=== PATIENT | female | born 1980 | race Caucasian/White ===

== ENCOUNTER 2017-11-16 18:28 | Inpatient (IN) | payer OTHER ==
[2017-11-16] MEDS: ONDANSETRON PF 4 MG/2 ML VIAL. IV ×2 (19:58→22:56)
[2017-11-16] MEDS: IV NORMAL SALINE 1000ML BAG 1,000 ML IV ×2 (19:59→22:59)
[2017-11-16] MEDS: fentaNYL PF VIAL 100 MCG/2 ML VIAL IV ×5 (19:59→23:46)
[2017-11-16 20:29] LABS: URINE HCG POC HCG NEGATIVE (Negative)
[2017-11-16] MEDS: PIPERACILLIN/TAZOBACTAM 3.375 GM in IV NORMAL SALINE 50ML 50 ML IV (21:21)
[2017-11-16 21:23] LABS: ANION GAP 12 (6-14); BLOOD UREA NITROGEN 9 mg/dL (7-20); BUN/CREATININE RATIO 23 (6-20); CALCIUM 8.6 mg/dL (8.5-10.1); CARBON DIOXIDE 20 mmol/L (21-32); CHLORIDE 105 mmol/L (98-107); CREATININE 0.4 mg/dL (0.6-1.0); GFR 177.7; GLUCOSE 105 mg/dL (70-99); POTASSIUM 3.5 mmol/L (3.5-5.1); SODIUM 137 mmol/L (136-145)
[2017-11-16 21:30] LABS: ALBUMIN 2.8 g/dL (3.4-5.0); ALBUMIN/GLOBULIN RATIO 0.7 (1.0-1.7); ALK PHOS 74 U/L (46-116); ALT (SGPT) 15 U/L (14-59); AST (SGOT) 14 U/L (15-37); LIPASE 72 U/L (73-393); TOTAL BILIRUBIN 0.5 mg/dL (0.2-1.0); TOTAL PROTEIN 6.7 g/dL (6.4-8.2)
[2017-11-16 22:04] LABS: ADD MAN DIFF? NO
[2017-11-16 22:13] LABS: BASO # 0.1 x10^3/uL (0.0-0.2); BASO % 1 % (0-3); EOS # 0.2 x10^3/uL (0.0-0.7); EOS % 1 % (0-3); HEMATOCRIT 40.8 % (36.0-47.0); HEMOGLOBIN 13.7 g/dL (12.0-15.5); LYMPH # 1.9 x10^3/uL (1.0-4.8); LYMPH % 12 % (24-48); MEAN CORPUSCULAR HEMOGLOBIN 30 pg (25-35); MEAN CORPUSCULAR HGB CONC 34 g/dL (31-37); MEAN CORPUSCULAR VOLUME 90 fL (79-100); MONO # 1.5 x10^3/uL (0.0-1.1); MONO % 10 % (0-9); NEUT % 77 % (31-73); PLATELET COUNT 324 x10^3/uL (140-400); RED BLOOD COUNT 4.54 x10^6/uL (3.50-5.40); RED CELL DISTRIBUTION WIDTH 13.4 % (11.5-14.5); WHITE BLOOD COUNT 15.6 x10^3/uL (4.0-11.0)
[2017-11-16] MEDS ORDERED: CYCLOBENZAPRINE 10 MG TABLET. PO (23:30)
[2017-11-16] MEDS: IBUPROFEN 800 MG TABLET. PO (23:43)
[2017-11-16] MEDS: clonazePAM 1 MG TABLET PO (23:43)
[2017-11-16] MEDS: CYCLOBENZAPRINE 10 MG TABLET. PO (23:43)
[2017-11-17] MEDS: DICYCLOMINE HCL 10 MG CAPSULE PO ×2 (00:10→20:03)
[2017-11-17] MEDS: fentaNYL PF VIAL 100 MCG/2 ML VIAL IV ×6 (00:52→22:35)
[2017-11-17] MEDS: IV NORMAL SALINE 1000ML BAG 1,000 ML IV ×3 (06:55→13:03)
[2017-11-17] MEDS: PIPERACILLIN/TAZOBACTAM 3.375 GM in IV NORMAL SALINE 50ML 50 ML IV ×3 (08:30→17:48)
[2017-11-17] MEDS ORDERED: ONDANSETRON PF 4 MG/2 ML VIAL. (09:52)
[2017-11-17] MEDS ORDERED: PROPOFOL 20 ML IV (09:52)
[2017-11-17] MEDS ORDERED: DEXAMETHASONE SOD PHOS 20 MG/5 ML VIAL. (09:52)
[2017-11-17] MEDS ORDERED: LIDOCAINE 2% PF Vial for OR 5 ML VIAL. (09:52)
[2017-11-17] MEDS ORDERED: ROCURONIUM 50 MG/5 ML VIAL. ×2 (09:53→11:42)
[2017-11-17] MEDS ORDERED: SUCCINYLCHOLINE 200 MG/10 ML VIAL. (09:53)
[2017-11-17] MEDS ORDERED: MIDAZOLAM HCL/PF 2 MG/2 ML VIAL. (09:53)
[2017-11-17] MEDS: IV RINGERS,LACTATED 1000ML 1,000 ML IV (09:53)
[2017-11-17] MEDS ORDERED: fentaNYL PF VIAL 100 MCG/2 ML VIAL (09:53)
[2017-11-17] MEDS ORDERED: ONDANSETRON PF 4 MG/2 ML VIAL. IV (10:00)
[2017-11-17] MEDS ORDERED: MORPHINE SULFATE 2 MG/ML DISP.SYRIN. IV (10:00)
[2017-11-17] MEDS ORDERED: fentaNYL PF VIAL 100 MCG/2 ML VIAL IV (10:00)
[2017-11-17] MEDS ORDERED: LIDOCAINE 1% PF 2 ML VIAL. ID (10:00)
[2017-11-17] MEDS ORDERED: PROCHLORPERAZINE 10 MG/2 ML VIAL. IV (10:00)
[2017-11-17] MEDS: BUPIVACAINE-EPI 0.25%-1:200000 50 ML VIAL. (10:57)
[2017-11-17] MEDS: SURGICEL HEMOSTAT 4X8 EACH. (10:57)
[2017-11-17] MEDS ORDERED: FAMOTIDINE 20 MG/2 ML VIAL (11:09)
[2017-11-17] MEDS ORDERED: PHENYLEPHRINE in 0.9% NACL PF 1 MG/10 ML SYRINGE. IV (11:10)
[2017-11-17] MEDS ORDERED: GLYCOPYRROLATE 1 MG/5 ML VIAL. (12:09)
[2017-11-17] MEDS ORDERED: NEOSTIGMINE METHYLSULFATE 5 MG/5 ML SYRINGE. (12:09)
[2017-11-17] MEDS ORDERED: SEVOFLURANE 61 TO 120 MINUTES. IH (13:56)
[2017-11-17] MEDS: oxyCODONE/APAP 5/325 1 TAB TABLET PO ×2 (14:28→20:03)
[2017-11-17] MEDS: ALBUTEROL SULFATE 2.5 MG/3 ML NEBU. NEB (15:25)
[2017-11-17 15:38] LABS: BASE EXCESS ABG -3 mmol/L (-3-3); HCO3 ABG 23 mmol/L (21-28); PCO2 ABG 46 mmHg (35-46); PH ABG 7.32 (7.35-7.45); PO2 ABG 74 mmHg (75-108); SAT O2 ABG 94 % (92-99)
[2017-11-17] MEDS ORDERED: MORPHINE SULFATE 4 MG/ML DISP.SYRIN. IV (18:15)
[2017-11-17] MEDS: LACTOBACILLUS RHAMNOSUS GG 1 CAPSULE. PO (20:04)
[2017-11-17] MEDS: IBUPROFEN 800 MG TABLET. PO (20:04)
[2017-11-17] MEDS: clonazePAM 1 MG TABLET PO (20:09)
[2017-11-17] MEDS: CYCLOBENZAPRINE 10 MG TABLET. PO (22:35)
[2017-11-18] MEDS: PIPERACILLIN/TAZOBACTAM 3.375 GM in IV NORMAL SALINE 50ML 50 ML IV ×5 (00:30→23:49)
[2017-11-18] MEDS: IV NORMAL SALINE 1000ML BAG 1,000 ML IV ×3 (00:31→16:30)
[2017-11-18] MEDS: NICOTINE 21MG PATCH. TD (00:31)
[2017-11-18] MEDS: clonazePAM 0.5 MG TABLET PO ×3 (04:14→21:40)
[2017-11-18] MEDS: oxyCODONE/APAP 5/325 1 TAB TABLET PO ×4 (04:15→21:39)
[2017-11-18] MEDS: LACTOBACILLUS RHAMNOSUS GG 1 CAPSULE. PO ×2 (08:27→21:40)
[2017-11-18] MEDS: ENOXAPARIN 40 MG/0.4 ML SYRINGE. SQ ×2 (08:27→21:39)
[2017-11-18] MEDS: ALBUTEROL SULFATE 2.5 MG/3 ML NEBU. NEB ×4 (08:30→20:41)
[2017-11-18] MEDS: fentaNYL PF VIAL 100 MCG/2 ML VIAL IV (14:26)
[2017-11-18] MEDS: IBUPROFEN 800 MG TABLET. PO ×2 (21:00→21:40)
[2017-11-18] MEDS: clonazePAM 1 MG TABLET PO (21:00)
[2017-11-19] MEDS: IV NORMAL SALINE 1000ML BAG 1,000 ML IV ×5 (00:30→20:16)
[2017-11-19] MEDS: ONDANSETRON PF 4 MG/2 ML VIAL. IV (03:09)
[2017-11-19] MEDS: MORPHINE SULFATE 4 MG/ML DISP.SYRIN. IV ×3 (03:28→17:26)
[2017-11-19] MEDS: PIPERACILLIN/TAZOBACTAM 3.375 GM in IV NORMAL SALINE 50ML 50 ML IV ×4 (06:16→23:22)
[2017-11-19] MEDS: ALBUTEROL SULFATE 2.5 MG/3 ML NEBU. NEB ×4 (07:52→20:00)
[2017-11-19] MEDS: LACTOBACILLUS RHAMNOSUS GG 1 CAPSULE. PO ×2 (09:00→21:29)
[2017-11-19] MEDS: ENOXAPARIN 40 MG/0.4 ML SYRINGE. SQ ×2 (09:36→21:30)
[2017-11-19] MEDS: SUMAtriptan SUCC 6 MG/0.5 ML VIAL. SQ (09:39)
[2017-11-19] MEDS: oxyCODONE/APAP 5/325 1 TAB TABLET PO (20:16)
[2017-11-19] MEDS: IBUPROFEN 800 MG TABLET. PO (21:29)
[2017-11-19] MEDS: CYCLOBENZAPRINE 10 MG TABLET. PO (21:29)
[2017-11-19] MEDS: clonazePAM 1 MG TABLET PO (21:30)
[2017-11-20] MEDS: IV NORMAL SALINE 1000ML BAG 1,000 ML IV ×3 (05:25→23:59)
[2017-11-20] MEDS: PIPERACILLIN/TAZOBACTAM 3.375 GM in IV NORMAL SALINE 50ML 50 ML IV ×4 (05:26→23:48)
[2017-11-20 05:56] LABS: ADD MAN DIFF? NO
[2017-11-20 06:07] LABS: BASO % 1 % (0-3); EOS # 0.2 x10^3/uL (0.0-0.7); EOS % 2 % (0-3); HEMATOCRIT 30.9 % (36.0-47.0); HEMOGLOBIN 10.5 g/dL (12.0-15.5); LYMPH # 1.4 x10^3/uL (1.0-4.8); LYMPH % 16 % (24-48); MEAN CORPUSCULAR HEMOGLOBIN 31 pg (25-35); MEAN CORPUSCULAR HGB CONC 34 g/dL (31-37); MEAN CORPUSCULAR VOLUME 91 fL (79-100); MONO % 12 % (0-9); NEUT % 69 % (31-73); PLATELET COUNT 249 x10^3/uL (140-400); RED CELL DISTRIBUTION WIDTH 13.2 % (11.5-14.5); WHITE BLOOD COUNT 8.7 x10^3/uL (4.0-11.0)
[2017-11-20] MEDS: ALBUTEROL SULFATE 2.5 MG/3 ML NEBU. NEB ×4 (07:28→19:21)
[2017-11-20] MEDS: oxyCODONE/APAP 5/325 1 TAB TABLET PO ×2 (09:57→17:02)
[2017-11-20] MEDS: ENOXAPARIN 40 MG/0.4 ML SYRINGE. SQ ×2 (09:57→20:49)
[2017-11-20] MEDS: LACTOBACILLUS RHAMNOSUS GG 1 CAPSULE. PO ×2 (09:58→20:48)
[2017-11-20] MEDS: BARIUM SULFATE 40% (APPLE) 148 GM PWD. PO (10:30)
[2017-11-20 10:40] LABS: BASE EXCESS ABG 2 mmol/L (-3-3); HCO3 ABG 26 mmol/L (21-28); PCO2 ABG 36 mmHg (35-46); PH ABG 7.47 (7.35-7.45); SAT O2 ABG 87 % (92-99)
[2017-11-20 10:42] LABS: FIO2 ABG 21; PO2 ABG 47 mmHg (75-108)
[2017-11-20] MEDS: clonazePAM 1 MG TABLET PO (20:48)
[2017-11-20] MEDS: IBUPROFEN 800 MG TABLET. PO (20:48)
[2017-11-20] MEDS: CYCLOBENZAPRINE 10 MG TABLET. PO (20:48)
[2017-11-21] MEDS: PIPERACILLIN/TAZOBACTAM 3.375 GM in IV NORMAL SALINE 50ML 50 ML IV ×3 (06:23→17:53)
[2017-11-21] MEDS: ALBUTEROL SULFATE 2.5 MG/3 ML NEBU. NEB ×4 (07:50→19:41)
[2017-11-21] MEDS: IV NORMAL SALINE 1000ML BAG 1,000 ML IV ×2 (08:49→17:53)
[2017-11-21] MEDS: ENOXAPARIN 40 MG/0.4 ML SYRINGE. SQ ×2 (09:00→22:15)
[2017-11-21] MEDS: LACTOBACILLUS RHAMNOSUS GG 1 CAPSULE. PO ×2 (09:46→21:00)
[2017-11-21] MEDS: CYCLOBENZAPRINE 10 MG TABLET. PO (21:00)
[2017-11-21] MEDS: IBUPROFEN 800 MG TABLET. PO (21:00)
[2017-11-21] MEDS: clonazePAM 1 MG TABLET PO (21:00)
[2017-11-21] MEDS: DICYCLOMINE HCL 10 MG CAPSULE PO (22:07)
[2017-11-22] MEDS: PIPERACILLIN/TAZOBACTAM 3.375 GM in IV NORMAL SALINE 50ML 50 ML IV ×3 (00:08→12:00)
[2017-11-22] MEDS: IV NORMAL SALINE 1000ML BAG 1,000 ML IV ×2 (00:16→06:12)
[2017-11-22] MEDS: ALBUTEROL SULFATE 2.5 MG/3 ML NEBU. NEB ×3 (08:32→16:20)
[2017-11-22] MEDS: LACTOBACILLUS RHAMNOSUS GG 1 CAPSULE. PO (10:22)
[2017-11-22] MEDS: ENOXAPARIN 40 MG/0.4 ML SYRINGE. SQ (10:23)
== END 2017-11-22 17:00 | disposition home health service (06) | DRG 417 ==
LOC: ER 18:28 → 4 NORTH 20:49
PROVIDERS: Family Medicine
PROC: 0FT44ZZ Resection of Gallbladder, Percutaneous Endoscopic Approach (ICD-10-PCS; principal; 2017-11-17 09:41)
DX: K80.00 Calculus of gallbladder with acute cholecystitis without obstruction (principal); J69.0 Pneumonitis due to inhalation of food and vomit; J96.01 Acute respiratory failure with hypoxia; J44.1 Chronic obstructive pulmonary disease with (acute) exacerbation; K56.7 Ileus, unspecified; R13.10 Dysphagia, unspecified; E66.9 Obesity, unspecified; E78.00 Pure hypercholesterolemia, unspecified; F17.200 Nicotine dependence, unspecified, uncomplicated; G43.909 Migraine, unspecified, not intractable, without status migrainosus; G80.9 Cerebral palsy, unspecified
CPT/HCPCS: 36415; 36600; 71045; 73030; 74018; 74230; 76705; 80053; 81025; 82805; 83690; 85025; 92526-GN; 92611-GN; 94640; 94760; 96361; 96365; 96375; 99285; 99285-25; J0330; J0690; J1100; J1650; J2250; J2270; J2370; J2405; J2543; J2704; J2710; J3010; J3030; J3490; J7030; J7120; J7613; S0028

== ENCOUNTER 2019-06-15 16:37 | Emergency (ER) | payer OTHER ==
[~2019-06-15] VITALS: Ht 162.6 cm; Wt 113.4 kg
[~2019-06-15 16:37] MED LIST: CLONAZEPAM1 MG PO; DICY20TA3 PO; FLUC150T2 PO; IBUP800T19 PO; ORPH100T PO
[2019-06-15 17:05] VITALS: BP 159/79
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
[2019-06-15] MEDS ORDERED: fentaNYL PF VIAL 100 MCG/2 ML VIAL IM ONE (18:00)
[2019-06-15] MEDS ORDERED: MORPHINE SULFATE 10 MG/ML VIAL. IV STA (18:14)
--- NOTE | 2019-06-15 18:53 | RAD ---
ANKLE LEFT 3V DATE: 06/15/2019 5:33 PM INDICATION: Pain after falling COMPARISON: None. FINDINGS: Bones: Acute minimally displaced oblique fracture of the distal fibular diaphysis. Joints: The ankle mortise is congruent. No widening of the distal tibiofibular syndesmosis. Miscellaneous: Pes planus. IMPRESSION: Acute minimally displaced distal fibular diaphysis fracture. Electronically signed by: Wolf Nelson MD (06/15/2019 6:50 PM) [facility]
[2019-06-15] MEDS ORDERED: HYDR-3164 PO (19:44)
[2019-06-15] MEDS ORDERED: LORazepam 0.5 MG TABLET PO STA (19:44)
[2019-06-15] MEDS ORDERED: HYDROcodone/APAP 5/325MG 1 TAB TABLET PO ONE (20:45)
--- NOTE | 2019-06-15 21:06 | RAD ---
FOOT LEFT 3V DATE: 06/15/2019 5:39 PM INDICATION: Trauma, pain COMPARISON: Recent ankle radiograph. FINDINGS: Bones: There is no evidence of acute fracture or dislocation of the foot. Partially visualized distal fibular diaphysis fracture, as seen on recent ankle radiograph. Joints: The joint spaces are normal. Miscellaneous: None. IMPRESSION: No evidence of acute foot fracture. Partially visualized distal fibular diaphysis fracture, best seen on recent ankle radiograph. Electronically signed by: Wolf Nelson MD (06/15/2019 9:03 PM) [facility]
--- NOTE | 2019-06-15 21:07 | RAD ---
TIBIA FIBULA LEFT DATE: 06/15/2019 5:39 PM INDICATION: Trauma, pain COMPARISON: Recent ankle radiograph Findings/ impression: Acute minimally displaced fracture of the distal fibular diaphysis, unchanged from the recent ankle radiographs. No other fractures are seen. Electronically signed by: Wolf Nelson MD (06/15/2019 9:04 PM) [facility]
== END 2019-06-15 20:41 | disposition home or self-care (01) ==
LOC: ER 16:37
DX: S82.832A Other fracture of upper and lower end of left fibula, initial encounter for closed fracture (principal); W05.0XXA Fall from non-moving wheelchair, initial encounter; Y93.89 Activity, other specified; Y92.89 Other specified places as the place of occurrence of the external cause; Y99.8 Other external cause status
CPT/HCPCS: 29515; 73590; 73610; 73630; 96372; 96374; 99284; J2270; J3010

== ENCOUNTER → 2019-08-13 | Outpatient (CLI) | payer OTHER ==
[~2019-08-13] MED LIST changes: +HYDR-3164 PO
--- NOTE | 2019-08-13 16:38 | RAD ---
Examination: Left Lower Extremity Venous Doppler Ultrasound History: Left calf pain, swelling Comparison: None Procedure: Benavides scale, color flow 2D and spectal waveform analysis images are obtained with and without compression in the area of the common femoral vein, superficial femoral vein - femoral vein junction, main femoral vein (superficial femoral vein) and popliteal vein. Veins of the proximal calf are also imaged. Findings: Limited examination due to patient body habitus. There is normal duplex flow, color flow and compressibility of all visualized vein segments. No evidence of deep venous thrombus is present. The calf veins could not be identified. Impression: No evidence of DVT in the visualized left lower extremity venous system.. Electronically signed by: Benjy Martinez MD (08/13/2019 4:36 PM) [id number]
== END | disposition home or self-care (01) ==
LOC: US 15:57
PROVIDERS: ATTEND Family Medicine
DX: M79.662 Pain in left lower leg (principal); M79.89 Other specified soft tissue disorders
CPT/HCPCS: 93971

== ENCOUNTER 2019-10-25 20:03 | Emergency (ER) | payer OTHER ==
[~2019-10-25] VITALS: Ht 162.6 cm; Wt 120.0 kg
[2019-10-25 20:23] VITALS: BP_SYST 162
[2019-10-25] MEDS ORDERED: IV NORMAL SALINE 1000ML BAG 1,000 ML IV ONE (20:30)
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
[2019-10-25 21:20] LABS: BASO # 0.1 x10^3/uL (0.0-0.2); BASO % 1 % (0-3); EOS # 0.5 x10^3/uL (0.0-0.7); EOS % 5 % (0-3); HEMATOCRIT 41.7 % (36.0-47.0); LYMPH % 20 % (24-48); MEAN CORPUSCULAR HEMOGLOBIN 31 pg (25-35); MEAN CORPUSCULAR HGB CONC 34 g/dL (31-37); MEAN CORPUSCULAR VOLUME 92 fL (79-100); MONO # 0.9 x10^3/uL (0.0-1.1); MONO % 9 % (0-9); NEUT # 6.4 x10^3/uL (1.8-7.7); NEUT % 65 % (31-73); PLATELET COUNT 327 x10^3/uL (140-400); RED BLOOD COUNT 4.56 x10^6/uL (3.50-5.40); RED CELL DISTRIBUTION WIDTH 12.6 % (11.5-14.5); WHITE BLOOD COUNT 9.8 x10^3/uL (4.0-11.0)
[2019-10-25 21:28] LABS: PREG TEST PT QUAL NEGATIVE (NEG)
[2019-10-25 21:31] LABS: PROTHROMBIN TIME PATIENT 12.5 SEC (11.7-14.0)
[2019-10-25 21:34] LABS: CALCIUM 9.3 mg/dL (8.5-10.1); CREATININE 0.6 mg/dL (0.6-1.0); D-DIMER 0.6 ug/mlFEU (0.00-0.50); GFR 110.2; POTASSIUM 3.7 mmol/L (3.5-5.1)
[2019-10-25 21:41] LABS: ALBUMIN 3.6 g/dL (3.4-5.0); MAGNESIUM 1.9 mg/dL (1.8-2.4); TOTAL BILIRUBIN 0.2 mg/dL (0.2-1.0); TOTAL PROTEIN 7.2 g/dL (6.4-8.2)
[2019-10-25 21:45] LABS: CREATINE KINASE 29 U/L (26-192)
[2019-10-25] MEDS ORDERED: CONTRAST GIVEN. MC PRN (22:30)
[2019-10-25] MEDS ORDERED: IOHEXOL 350 MG/ML 100 ML VIAL. IV ONE (23:00)
[2019-10-25] MEDS ORDERED: ASPIRIN CHEWABLE 81 MG TABLET. PO ONE (23:00)
--- NOTE | 2019-10-25 23:33 | RAD ---
AP portable chest radiograph 10/25/2019 Clinical History: Chest pain. An AP erect portable digital radiograph of the chest was obtained. Comparison study is dated 11/18/2017. The cardiac and mediastinal silhouettes are within normal limits in size and configuration. No acute pulmonary infiltrate is noted. No pneumothorax or pleural effusion is seen. Degenerative changes are seen involving the thoracic spine. IMPRESSION: No acute abnormality is seen. Electronically signed by: Cam Bonilla MD (10/25/2019 11:30 PM) [id number]
[2019-10-26] MEDS ORDERED: ALBU2.5V8 IH (00:51)
--- NOTE | 2019-10-26 00:54 | RAD ---
INDICATION: Chest pain COMPARISON: None. TECHNIQUE: Axial CT images obtained through the chest. Intravenous contrast utilized. Angiogram 3D images processed per protocol. One or more of the following individualized dose reduction techniques were utilized for this examination: 1. Automated exposure control; 2. Adjustment of the mA and/or kV according to patient size; 3. Use of iterative reconstruction technique. FINDINGS: There is almost no contrast on the images therefore nondiagnostic for pulmonary embolus. There is also motion which limits exam. No evidence of pneumothorax. Linear nodular opacity in the right middle lobe. Degenerative changes of the spine. Scattered lymph nodes within the mediastinum including subcarinal lymph node which appears mildly enlarged measuring up to approximately 11 mm short axis. Large portion of ascending thoracic aorta is obscured by motion and cannot evaluate lumen given lack of contrast. IMPRESSION: Nondiagnostic examination for pulmonary embolus given the lack of contrast and motion. Linear nodular opacity within the right middle lobe which is most commonly secondary to atelectasis given the morphology. There are some mildly enlarged lymph nodes in the mediastinum. Could be reactive in nature unless the patient has history or risk factors for neoplasm. Electronically signed by: Sean Zheng MD (10/26/2019 12:50 AM) [id number]
--- NOTE | 2019-10-26 08:57 | EKG ---
[facility] [address] [place] [address] Test Date: 2019-10-25 Test Time: 20:17:06 Pat Name: ROBERTA ELLER Department: Room: Gender: F Guide Delegate: : 1980 Requested By: CARMEN SZYMANSKI Order Number: [id number] Reading MD: Measurements Intervals Perry Rate: 0 P: TN: QRS: 0 QRSD: 0 T: 0 QT: 0 QTc: 0 Interpretive Statements No previous ECG available for comparison
== END 2019-10-26 01:00 | disposition left against medical advice (07) ==
LOC: ER 20:03
DX: R07.89 Other chest pain (principal); R79.1 Abnormal coagulation profile; R06.02 Shortness of breath; K58.9 Irritable bowel syndrome, unspecified; E78.00 Pure hypercholesterolemia, unspecified; Z87.891 Personal history of nicotine dependence
CPT/HCPCS: 36415; 71045; 71275; 80053; 82553; 83690; 83735; 83880; 84484; 84703; 85025; 85379; 85610; 93005; 99285; J7030